=== PATIENT | male | born 1990 | race Caucasian/White ===

== ENCOUNTER 2020-08-17 04:06 | Emergency (ER) | payer BC ==
--- NOTE | 2020-08-17 05:27 | ER ---
Nurse's Notes [facility] Name: Kahlil Robertson Age: 30 yrs Sex: Male : 1990 Arrival Date: 08/17/2020 Time: 04:10 Bed 20 Private MD: Diagnosis: Foreign body in other parts of alimentary tract-metalic Presentation: 08/17 04:20 Chief complaint: Patient states: while drinking my water I noticed a piece of metal rr5 shaving stock on my throat approximate for 10 minutes then I swallowed it. denies pain, denies SOB or difficulty of breathing. 04:20 Coronavirus screen: Client denies travel out of the [place] in the last 14 days. At this rr5 time, the client does not indicate any symptoms associated with coronavirus-19. Ebola Screen: Patient negative for fever greater than or equal to 101.5 degrees Fahrenheit, and additional compatible Ebola Virus Disease symptoms Patient denies exposure to infectious person. Patient denies travel to an Ebola-affected area in the 21 days before illness onset. Initial Sepsis Screen: Does the patient meet any 2 criteria? No. Patient's initial sepsis screen is negative. Does the patient have a suspected source of infection? No. Patient's initial sepsis screen is negative. Risk Assessment: Do you want to hurt yourself or someone else? Patient reports no desire to harm self or others. Onset of symptoms was August 17, 2020. 04:20 Method Of Arrival: Ambulatory rr5 04:20 Acuity: FLORA 3 rr5 Historical: - Allergies: 04:20 No Known Allergies; rr5 - Home Meds: 04:20 None [Active]; rr5 - PMHx: 04:20 None; rr5 - PSHx: 04:20 Gastric Bypass; rr5 - Immunization history:: Adult Immunizations up to date. - Social history:: Smoking status: unknown Patient/guardian denies using street drugs. - Family history:: not pertinent. Screenin:28 Abuse screen: Denies threats or abuse. Nutritional screening: No deficits noted. ea Tuberculosis screening: No symptoms or risk factors identified. Fall Risk None identified. Assessment: 04:28 General: Appears in no apparent distress. Behavior is calm, cooperative, appropriate ea for age. Pain: Denies pain. Neuro: Level of Consciousness is awake, alert, obeys commands, Oriented to person, place, time. Cardiovascular: Patient's skin is warm and dry. Respiratory: Airway is patent Respiratory effort is even, unlabored, Respiratory pattern is regular, symmetrical. Derm: Skin is pink, warm \T\ dry. 04:28 GI: Abdomen is Reports ingested metal shaving piece. rr5 04:28 : No signs and/or symptoms were reported regarding the genitourinary system. EENT: No rr5 signs and/or symptoms were reported regarding the EENT system. Musculoskeletal: Capillary refill < 3 seconds. 05:37 Reassessment: Patient appears in no apparent distress at this time. Patient is alert, rr5 oriented x 3, equal unlabored respirations, skin warm/dry/pink. discharge instruction given and explained without complaints made. Vital Signs: 04:20 BP 133 / 81; Pulse 74; Resp 19; Temp 98.4; Pulse Ox 100% ; Weight 122.47 kg; Height 6 rr5 ft. 1 in. (185.42 cm); Pain 0/10; 05:32 BP 125 / 70; Pulse 70; Resp 16; Pulse Ox 98% ; rr5 04:20 Body Mass Index 35.62 (122.47 kg, 185.42 cm) rr5 ED Course: 04:10 Patient arrived in ED. bp1 04:20 Arm band placed on right wrist. rr5 04:24 Triage completed. rr5 04:27 Arlet Blanca, RN is Primary Nurse. ea 04:28 Patient has correct armband on for positive identification. Bed in low position. Call ea light in reach. 04:55 Wilfrid Alvarado MD is Attending Physician. yasir 04:58 Chest Single View XRAY In Process Unspecified. EDMS 04:58 XRAY KUB In Process Unspecified. EDMS 05:24 Terence Ramirez MD is Referral Physician. yasir 05:32 No provider procedures requiring assistance completed. Patient did not have IV access rr5 during this emergency room visit. Administered Medications: No medications were administered Outcome: 05:27 Discharge ordered by . yasir 05:37 Discharged to home ambulatory. rr5 05:37 Condition: stable 05:37 Discharge instructions given to patient, Instructed on discharge instructions, follow up and referral plans. Demonstrated understanding of instructions, follow-up care. 05:38 Patient left the ED. rr5 Signatures: Dispatcher [employer] Wilfrid Camarillo MD MD cha Antunez, Elena RN RN Mark Anthony Boyd RN RN rr5 Shellie Morocho
--- NOTE | 2020-08-17 05:27 | EDPHYS ---
Physician Documentation [facility] Name: Kahlil Robertson Age: 30 yrs Sex: Male : 1990 Arrival Date: 08/17/2020 Time: 04:10 Bed 20 Private MD: ED Physician Wilfrid Alvarado HPI: 08/17 05:19 This 30 yrs old Male presents to ER via Ambulatory with complaints of yasir Swallowed Foreign Body. 05:19 The patient presents with swallowed foreign body. Onset: The symptoms/episode yasir began/occurred yesterday. The symptoms do not radiate. Associated signs and symptoms: none. The symptoms are described as no pain. Modifying factors: The symptoms are alleviated by nothing, the symptoms are aggravated by nothing. Severity of pain: At its worst the pain was. The patient has not experienced similar symptoms in the past. Historical: - Allergies: 04:20 No Known Allergies; rr5 - Home Meds: 04:20 None [Active]; rr5 - PMHx: 04:20 None; rr5 - PSHx: 04:20 Gastric Bypass; rr5 - Immunization history:: Adult Immunizations up to date. - Social history:: Smoking status: unknown Patient/guardian denies using street drugs. - Family history:: not pertinent. ROS: 05:19 Constitutional: Negative for fever, chills, and weight loss, Eyes: Negative for injury, yasir pain, redness, and discharge, ENT: Negative for injury, pain, and discharge, Neck: Negative for injury, pain, and swelling, Cardiovascular: Negative for chest pain, palpitations, and edema, Respiratory: Negative for shortness of breath, cough, wheezing, and pleuritic chest pain, Back: Negative for injury and pain, : Negative for injury, bleeding, discharge, and swelling, MS/Extremity: Negative for injury and deformity, Skin: Negative for injury, rash, and discoloration, Neuro: Negative for headache, weakness, numbness, tingling, and seizure, Psych: Negative for depression, anxiety, suicide ideation, homicidal ideation, and hallucinations, Allergy/Immunology: Negative for hives, rash, and allergies, Endocrine: Negative for neck swelling, polydipsia, polyuria, polyphagia, and marked weight changes, Hematologic/Lymphatic: Negative for swollen nodes, abnormal bleeding, and unusual bruising. 05:19 Abdomen/GI: Positive for no pain. Exam: 05:19 Constitutional: This is a well developed, well nourished patient who is awake, alert, yasir and in no acute distress. Head/Face: Normocephalic, atraumatic. Eyes: Pupils equal round and reactive to light, extra-ocular motions intact. Lids and lashes normal. Conjunctiva and sclera are non-icteric and not injected. Cornea within normal limits. Periorbital areas with no swelling, redness, or edema. ENT: Nares patent. No nasal discharge, no septal abnormalities noted. Tympanic membranes are normal and external auditory canals are clear. Oropharynx with no redness, swelling, or masses, exudates, or evidence of obstruction, uvula midline. Mucous membranes moist. Neck: Trachea midline, no thyromegaly or masses palpated, and no cervical lymphadenopathy. Supple, full range of motion without nuchal rigidity, or vertebral point tenderness. No Meningismus. Chest/axilla: Normal chest wall appearance and motion. Nontender with no deformity. No lesions are appreciated. Cardiovascular: Regular rate and rhythm with a normal S1 and S2. No gallops, murmurs, or rubs. Normal PMI, no JVD. No pulse deficits. Respiratory: Lungs have equal breath sounds bilaterally, clear to auscultation and percussion. No rales, rhonchi or wheezes noted. No increased work of breathing, no retractions or nasal flaring. Abdomen/GI: Soft, non-tender, with normal bowel sounds. No distension or tympany. No guarding or rebound. No evidence of tenderness throughout. Back: No spinal tenderness. No costovertebral tenderness. Full range of motion. Male : Normal genitalia with no discharge or lesions. Skin: Warm, dry with normal turgor. Normal color with no rashes, no lesions, and no evidence of cellulitis. MS/ Extremity: Pulses equal, no cyanosis. Neurovascular intact. Full, normal range of motion. Neuro: Awake and alert, GCS 15, oriented to person, place, time, and situation. Cranial nerves II-XII grossly intact. Motor strength 5/5 in all extremities. Sensory grossly intact. Cerebellar exam normal. Normal gait. Psych: Awake, alert, with orientation to person, place and time. Behavior, mood, and affect are within normal limits. Vital Signs: 04:20 BP 133 / 81; Pulse 74; Resp 19; Temp 98.4; Pulse Ox 100% ; Weight 122.47 kg; Height 6 rr5 ft. 1 in. (185.42 cm); Pain 0/10; 05:32 BP 125 / 70; Pulse 70; Resp 16; Pulse Ox 98% ; rr5 04:20 Body Mass Index 35.62 (122.47 kg, 185.42 cm) rr5 MDM: 05:01 Patient medically screened. [facility] 05:22 Differential diagnosis: ingestion of foreign body. Data reviewed: vital signs, nurses yasir notes. 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 Test interpretation: by ED physician or midlevel provider: plain radiologic studies. Counseling: I had a detailed discussion with the patient and/or guardian regarding: the historical points, exam findings, and any diagnostic results supporting the discharge/admit diagnosis, radiology results. 08/17 04:20 Order name: Chest Single View XRAY rr5 08/17 04:30 Order name: XRAY KUB ea Administered Medications: No medications were administered Disposition: 08/17/20 05:27 Discharged to Home. Impression: Foreign body in other parts of alimentary tract - metalic. - Condition is Stable. - Discharge Instructions: Swallowed Foreign Body, Adult, Swallowed Foreign Body, Adult, [id number], Foreign Body. - Medication Reconciliation Form, Thank You Letter, Antibiotic Education, Prescription Opioid Use form. - Follow up: Private Physician; When: 2 - 3 days; Reason: Recheck today's complaints, Continuance of care, Re-evaluation by your physician. Follow up: Terence Ramirez MD; When: 2 - 3 days; Reason: Recheck today's complaints, Re-evaluation by your physician. - Problem is new. - Symptoms have improved. Signatures: Dispatcher [employer] EDMS Wilfrid Alvarado MD MD cha Roque, Raymond, RN RN rr5 Corrections: (The following items were deleted from the chart) 05:38 05:27 08/17/2020 05:27 Discharged to Home. Impression: Foreign body in other parts of rr5 alimentary tract - metalic. Condition is Stable. Forms are Medication Reconciliation Form, Thank You Letter, Antibiotic Education, Prescription Opioid Use. Follow up: Private Physician; When: 2 - 3 days; Reason: Recheck today's complaints, Continuance of care, Re-evaluation by your physician. Follow up: Terence Ramirez; When: 2 - 3 days; Reason: Recheck today's complaints, Re-evaluation by your physician. Problem is new. Symptoms have improved. yasir
[2020-08-17 07:33] VITALS: TEMP 98.4
[2020-08-17 07:35] VITALS: BP 125/70; O2SAT 98
--- NOTE | 2020-08-17 08:01 | RAD REPORT ---
EXAM DESCRIPTION: RAD - Abdomen 1 View (KUB) - 08/17/2020 4:59 am CLINICAL HISTORY: Abdomen pain. Swallowed foreign body FINDINGS: The bowel gas pattern is unremarkable. A radiopaque foreign body is not seen
--- NOTE | 2020-08-17 08:02 | RAD REPORT ---
EXAM DESCRIPTION: Ashish Single View08/17/2020 4:58 am CLINICAL HISTORY: Chest pain/swallowed foreign body COMPARISON: none FINDINGS: The lungs appear clear of acute infiltrate. The heart is normal size. A radiopaque foreig n body is not seen IMPRESSION: No acute abnormalities displayed
== END 2020-08-17 05:38 | disposition home or self-care (01) ==
LOC: ER 04:06
DX: T18.9XXA Foreign body of alimentary tract, part unspecified, initial encounter (principal)
CPT/HCPCS: 71045; 74018; 99283